=== PATIENT | female | born 1975 | race Caucasian/White ===

== ENCOUNTER 2019-09-15 11:37 | Emergency (ER) | payer BC, SELFPAY ==
[2019-09-15 11:39] VITALS: BP 118/73; PULSE 99; RESP 17; TEMP 37; O2SAT 97; BMI 27.8
[2019-09-15 12:07] VITALS: BP 116/83; BP 118/80; PULSE 78; PULSE 79; RESP 16; TEMP 37; O2SAT 98; O2SAT 99
--- NOTE | 2019-09-15 12:07 | RAD_ITS ---
STUDY: X-RAY CHEST REASON FOR EXAM: Female, 44 years old. FEVER, CHILLS, HEADACHE, NECK PAIN RASH X 8 DAYS TECHNIQUE: PA and lateral views of the chest. COMPARISON: None. FINDINGS: EKG electrodes are seen. Hyperinflation. The lungs are clear. There is no demonstrated pleural abnormality. Normal size heart. Normal mediastinum and kenzie. Normal visualized pulmonary arteries. Normal visualized aortic arch and descending thoracic aorta. Normal visualized thoracic spine. Normal visualized ribs, clavicles, and shoulders. There is no demonstrated abnormality of the visualized soft tissue structures of the upper abdomen. RAD/Chest PA and Lateral IMPRESSION: Hyperinflation. The lungs are clear. Electronically Signed: Juan Carlos Gonzalez, at 13:37 EDT , Service support ,
[2019-09-15 12:08] VITALS: BP 119/72; PULSE 83; RESP 16; TEMP 36.8; O2SAT 99
[2019-09-15 12:11] VITALS: BP 117/68; BP 118/73; PULSE 82; PULSE 99; RESP 16; RESP 17; TEMP 37; O2SAT 96; O2SAT 97
--- NOTE | 2019-09-15 12:47 | ED.VIS.GEN ---
History of Present Illness Chief Complaint: Fever Narrative: Patient presenting for evaluation secondary to a fever and rash. Patient states that around 10 days ago she developed a rash on the dorsum of her left hand. She reports that it was associated with a burning sensation, she initially thought maybe she burned herself on something while cooking, and then it spread somewhat over the dorsum of the hand. Patient states that 2 days after that arrived, she started to have fevers. Patient states that she pretty much will have a daily fever as high as 102. Patient reports some generalized malaise associated with this. She has nausea but no vomiting. She denies any diarrhea. She denies any cough. No shortness of breath, no sick contacts. No urinary signs or symptoms, vaginal discharge or bleeding. Patient denies any history of recent surgeries, injections, or history of IV drug abuse. Patient does also endorse that she has somewhat of a bandlike headache across her head and some pain down the right side of her neck but no neck rigidity. Patient is otherwise healthy, really does not take any medications. She takes a homeopathic anti-parasite medication Past Medical History - Allergies and Home Meds Allergies/Adverse Reactions: Allergies No Known Allergies Allergy (Verified 09/15/19 11:38) Primary Care Physician: Care Physician,No Primary [Primary Care Provider] - Prior records reviewed: Yes Past Medical History: None Smoking Status: Never smoker Review of Systems All systems negative except as indicated General: Reports: Fever, Malaise Eyes: Denies: Visual changes - bilaterally, Diplopia ENT: Denies: Rhinorrhea, Sore throat Cardiovascular: Denies: Chest pain, Palpitations Respiratory: Denies: Dyspnea, Cough, Dyspnea on exertion Gastrointestinal: Reports: Nausea. Denies: Vomiting, Diarrhea Genitourinary: Denies: Dysuria, Hematuria, Frequency Musculoskeletal: Denies: Back pain, Extremity Pain Skin: Reports: Rash Neurological: Denies: Headache, Weakness, Numbness Physical Exam Vital Signs/Narrative: Vital Signs Temp Pulse Resp BP Pulse Ox 09/15/19 12:11 98.6 F 82 16 117/68 96 09/15/19 11:39 98.6 F 99 17 118/73 97 General: Well nourished, Well developed, No Acute Distress Head: Normocephalic, Atraumatic Eyes: Perrl, EOMI ENT: Moist mucous membranes, No rhinorrhea Neck: Supple, Nontender, - - No meningismus, normal range of motion of the neck Cardiovascular: Regular rate, Regular rhythm, No murmurs Respiratory: No distress, CTA bilaterally, Chest nontender Abdomen: Soft, Nontender, Nondistended, Normal bowel sounds Back: Nontender, Normal Inspection Extremities: Nontender, No edema Skin: Normal color, No rash, - - Erythematous blanching rash over the dorsum of the patient's left hand over the index finger metacarpal tracking around of the thumb. No underlying fluctuance or induration. No lymphangitic streaking. No rashes noted on the palms or soles Neurological: Alert, Oriented x3, Cranial nerves II-XII grossly intact, Normal Strength, Normal Sensation Psychological: Normal affect, Normal Mood Diagnostic/Tx/Re-eval Clinical Impression(s) from Imaging Studies Chest X-Ray 09/15/19 12:07 IMPRESSION: Hyperinflation. The lungs are clear. Electronically Signed: Juan Carlos Jose Luismianariana, at 13:37 EDT , Service support , Laboratory Data 09/15/19 09/15/19 09/15/19 12:45 12:45 12:45 WBC 5.3 RBC 4.99 Hgb 14.7 Hct 44.5 MCV 89.2 MCH 29.5 MCHC 33.0 RDW Std Deviation 40.2 RDW Coeff of Ramya 12.3 Plt Count 178 MPV 11.0 Immature Gran % (Auto) 0.400 Neut % (Auto) 43.6 L Lymph % (Auto) 41.8 H [place] % (Auto) 8.9 Eos % (Auto) 3.6 Baso % (Auto) 1.7 H Absolute Neuts (auto) 2.3 Absolute Lymphs (auto) 2.20 Nucleated RBC % 0 Differential Comment SCANNED Reactive Lymphocytes 1+ PT 13.0 INR 1.0 APTT 30.0 Sodium 140 Potassium 3.8 Chloride 108 H Carbon Dioxide 27.0 Anion Gap 5 BUN 10 Creatinine 0.82 Estim Creat Clear Calc 65.38 Est GFR (MDRD) Af Amer 97 Est GFR (MDRD) Non-Af 81 BUN/Creatinine Ratio 12.3 Glucose 93 Lactic Acid Calcium 8.6 Total Bilirubin 0.30 AST 97 H ALT 95 H Alkaline Phosphatase 193 H Total Protein 7.4 Albumin 3.5 Globulin 3.9 Albumin/Globulin Ratio 0.9 Urine Color Urine Clarity Urine pH Ur Specific [place] Urine Protein Urine Glucose (UA) Urine Ketones Urine Occult Blood Urine Nitrite Urine Bilirubin Urine Urobilinogen Ur Leukocyte Esterase Urine RBC Urine WBC Ur Squamous Epith Cells Urine Bacteria Urine Mucus 09/15/19 09/15/19 12:45 13:41 WBC RBC Hgb Hct MCV MCH MCHC RDW Std Deviation RDW Coeff of Ramya Plt Count MPV Immature Gran % (Auto) Neut % (Auto) Lymph % (Auto) [place] % (Auto) Eos % (Auto) Baso % (Auto) Absolute Neuts (auto) Absolute Lymphs (auto) Nucleated RBC % Differential Comment Reactive Lymphocytes PT INR APTT Sodium Potassium Chloride Carbon Dioxide Anion Gap BUN Creatinine Estim Creat Clear Calc Est GFR (MDRD) Af Amer Est GFR (MDRD) Non-Af BUN/Creatinine Ratio Glucose Lactic Acid 1.7 Calcium Total Bilirubin AST ALT Alkaline Phosphatase Total Protein Albumin Globulin Albumin/Globulin Ratio Urine Color Yellow Urine Clarity Clear Urine pH 8.0 Ur Specific [place] 1.010 Urine Protein Negative Urine Glucose (UA) Normal Urine Ketones Negative Urine Occult Blood Negative Urine Nitrite Negative Urine Bilirubin Negative Urine Urobilinogen Normal Ur Leukocyte Esterase Negative Urine RBC 0 SEEN Urine WBC 0 SEEN Ur Squamous Epith Cells 0 SEEN Urine Bacteria 0 SEEN Urine Mucus 0 SEEN - Medical Decision Making Patient presented secondary to a rash and a fever that is been going on over the course of the last week. Broad work-up was obtained. I did send GC and chlamydia as well as RPR studies given the strange presentation of the rash, but actually have low suspicion that this is sexually transmitted infection as the patient has no pelvic complaints and is in a monogamous relationship. CBC was unremarkable, did show a elevation of the patient's lymphocytes likely indicative of a viral illness. Chemistry and liver panel unremarkable. Urinalysis was negative. Chest x-ray was negative. Blood cultures and urine cultures were sent. Patient at this point likely is fighting off a viral illness. Coronavirus testing was sent and is pending. Patient was recommended to continue conservative management, there is no indication for imaging. Patient was discharged in stable condition. ED Disposition - Plan for ED Patient: Disposition: Home or Assisted Living Diagnosis: Febrile illness, acute Instructions: ED Fever Control (Adult) Referrals: Care Physician,No Primary [Primary Care Provider] - Alan Morrison MD [STAFF PHYSICIAN] - 1 Week if not improving
[2019-09-15 13:04] LABS: Absolute Neutrophil Count 2.3 X10^3/uL (2.0-7.7); Basophil# 0.09 X10^3/uL; Basophil% 1.7 % (0-1); Eosinophil# 0.19 X10^3/uL; Eosinophils% 3.6 % (0-5); Hematocrit 44.5 % (37-47); Hemoglobin 14.7 g/dL (12.0-15.0); Lymphocyte % 41.8 % (19-41); Mean Corpuscular Hgb 29.5 pg (27.0-32.0); Mean Corpuscular Volume 89.2 fL (81-99); Monocyte# 0.47 X10^3/uL; Monocyte% 8.9 % (0-10); NRBC Flagged by Analyzer 0 % (0-5); Neutrophil # 2.29 X10^3/uL (2.7-7.7); Neutrophil % 43.6 % (47-70); POSITIVE MORPHOLOGY YES; Platelet Count 178 K/mm3 (150-450); RBC Distribution Width CV 12.3 % (11.6-14.6); RBC Distribution Width SD 40.2 fl (35.1-43.9); Red Blood Count 4.99 M/mm3 (4.2-5.4); White Blood Count 5.3 K/mm3 (4.4-11.0)
[2019-09-15 13:06] LABS: Differential Indicated SCAN CRITERIA MET
[2019-09-15 13:22] LABS: ALB/GLOB Ratio 0.9 RATIO (0.9-2.4); AST(SGOT) 97 U/L (15-37); Alanine Aminotransfer ALT/SGPT 95 U/L (13-56); Albumin, Serum 3.5 g/dL (3.2-5.0); Alkaline Phosphatase 193 U/L (45-117); Anion Gap 5 (5-15); BUN 10 mg/dL (7-18); BUN/Creat Ratio 12.3 RATIO (10-20); Calcium,Total 8.6 mg/dL (8.5-10.1); Chloride 108 mmol/L (98-107); Creatinine, Serum 0.82 mg/dL (0.55-1.02); EST Glomerular Filtration Rate 81 mL/min (>60); Est Glom Filt Rate - Afr Amer 97 mL/min (>60); Estimated Creatinine Clearance 65.38 ml/min; Globulin 3.9 g/dL (2.2-4.2); Glucose 93 mg/dL (74-106); Potassium 3.8 mmol/L (3.5-5.1); Protein, Total 7.4 g/dL (6.4-8.2); Sodium Level 140 mmol/L (136-145)
[2019-09-15 13:32] LABS: Differential Comment SCANNED; Lactic Acid 1.7 mmol/L (0.4-1.9); Reactive Lymphocyte 1+
[2019-09-15 13:33] VITALS: BP 129/82; PULSE 85; RESP 17; TEMP 37; O2SAT 97
[2019-09-15 13:47] LABS: Bacteria 0 SEEN /hpf (None Seen); Mucous, Urine 0 SEEN /hpf (<or=2+); Red Blood Cells-Urine 0 SEEN /hpf (0-5); Squamous Epithelial Cells - UA 0 SEEN /hpf (5-10); White Blood Cells 0 SEEN /hpf (0-5)
[2019-09-15 13:59] LABS: Color, Urine Yellow (Yellow); Glucose, Dipstick Normal (Normal); Ketone-Dipstick Negative (Negative); Leukocyte Esterase-Dipstick Negative /ul (Negative); Nitrite-Dipstick Negative (Negative); Occult Blood-Urine Negative /ul (Negative); Protein-Dipstick Negative (Negative); Urine Bilirubin Dipstick Negative (Negative); Urine Clarity Clear (Clear); Urine Urobilinogen Normal (Normal)
[2019-09-15 15:38] LABS: Chlamydia Trachomatis by PCR Negative (Negative); Neisserai gonorrhoeae by PCR Negative (Negative); Probe Check PASS; Sample Adequacy Control PASS; Specimen Processing Control PASS
[2019-09-15 15:58] VITALS: BP 93/81; PULSE 89; RESP 17; TEMP 36.7; O2SAT 97
[2019-09-22 03:25] LABS: Rapid Plasmin Reagin (RPR) NONREACTIVE (NONREACTIVE)
== END 2019-09-15 16:00 | disposition home or self-care (01) ==
PROVIDERS: Emergency Provider Emergency Medicine
DX: R50.9 Fever, unspecified (principal); R21 Rash and other nonspecific skin eruption
CPT/HCPCS: 71046; 80053; 81001; 83605; 85025; 85610; 85730; 86592; 87040; 87086; 87088; 87491; 87591; 87635; 99284; G2023; J7030; J7040; A4216; U0003

== ENCOUNTER → 2021-09-13 | Outpatient (CLI) | payer BC, SELFPAY | END | disposition home or self-care (01) | LOC: LAB 07:54 | DX: G93.3 Postviral and related fatigue syndromes (principal); E55.9 Vitamin D deficiency, unspecified; D51.0 Vitamin B12 deficiency anemia due to intrinsic factor deficiency; D52.0 Dietary folate deficiency anemia; E63.8 Other specified nutritional deficiencies; E61.1 Iron deficiency; R79.89 Other specified abnormal findings of blood chemistry; E78.5 Hyperlipidemia, unspecified; R73.09 Other abnormal glucose; N95.1 Menopausal and female climacteric states ==